=== PATIENT | male | born 1965 | race Caucasian/White ===

== ENCOUNTER 2024-09-01 11:34 | Inpatient (IN) | payer MEDICARE, OTHER ==
[~2024-09-01] VITALS: Ht 177.8 cm; Wt 100.5 kg
[~2024-09-01 11:34] MED LIST: ACET-890 PO; INSU100I12 SQ; LACT1CAP26 PO; NORCO10T PO; NYSTATIN TOP; ONDA4TAB6 PO; OXYC10TA6 PO; POLY17PO10 PO; PREG100C24 PO; SULF1TAB45 PO; VIT C PO; ZINC PO; [UNRECOGNIZED DRUG - CODE] TP
--- NOTE | 2024-09-01 12:25 | RADIOLOGY REPORT ---
CHEST RADIOGRAPH Indication: WOUNDS Technique: Single frontal view of the chest was obtained COMPARISON: None FINDINGS: Lines and Tubes: None Lungs: Clear Pleura: No effusion. No pneumothorax. Cardiomediastinal contours: Unremarkable Bones: Unremarkable IMPRESSION: No acute disease.
[2024-09-01 12:37] LABS: BILIRUBIN,URINE NEGATIVE (Neg); CLARITY,URINE CLEAR (Clear); COLOR,URINE YELLOW (Yellow); GLUCOSE, URINE >=1000 mg/dl (Neg); KETONES,URINE NEGATIVE (Neg); LEUKOCYTE ESTERASE ,URINE SMALL (Neg); NITRITES, URINE POSITIVE (Neg); OCCULT BLOOD,URINE TRACE-INTACT (Neg); PROTEIN,URINE NEGATIVE (Neg); UROBILINOGEN,URINE 0.2 E.U/dL (0.2-1.0)
[2024-09-01 12:49] LABS: UA COLLECTION TYPE FOLEY CATH
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
[2024-09-01 13:05] LABS: RBC,URINE NONE SEEN /HPF (0-2)
[2024-09-01 13:06] LABS: BACTERIA,URINE 1+ /HPF (Neg); MUCUS STRANDS FEW /LPF (Neg); SQUAMOUS EPITHELIAL CELL,UR FEW /LPF (FEW); WBC CLUMPS,URINE FEW /HPF (NEGATIVE)
[2024-09-01] MEDS ORDERED: morphine 2 MG/ML inj. syringe IV PRN (13:20)
[2024-09-01] MEDS ORDERED: acetaminophen 325mg tablet PO PRN ×2 (13:20)
[2024-09-01] MEDS ORDERED: potassium Cl 40MEQ/1/2NS 520ml 520 ML IV PRN (13:20)
[2024-09-01] MEDS ORDERED: HYDROcodone/acetaminophen 10/325mg tab PO PRN (13:20)
[2024-09-01] MEDS ORDERED: potassium Cl 20 mEq SR tablet PO PRN (13:20)
[2024-09-01] MEDS ORDERED: HYDROcodone/acetaminophen 5mg/325mg tablet PO PRN (13:20)
[2024-09-01] MEDS ORDERED: ondansetron/PF 4mg/2ml inj IV PRN (13:20)
[2024-09-01] MEDS ORDERED: mag hydrox/Alum hydrox/simeth 30ml oral suspension PO PRN (13:20)
[2024-09-01] MEDS ORDERED: magnesium hydroxide 30ml (MOM) UD suspension PO PRN (13:20)
[2024-09-01 13:34] LABS: ALBUMIN 1.6 G/DL (3.4-5.0); ANION GAP 6 (8-16); BLOOD UREA NITROGEN 3 MG/DL (7-18); CALCIUM 7.5 MG/DL (8.5-10.1); CHLORIDE 102 MMOL/L (99-107); CREATININE 0.25 MG/DL (0.60-1.10); GLUCOSE 259 MG/DL (70-104); SODIUM 136 MMOL/L (135-145); TOTAL CARBON DIOXIDE 28.5 MMOL/L (24-32); eCRCL 280 ML/MIN; eGFR > 90 ML/MIN
[2024-09-01 13:43] LABS: POTASSIUM 3.7 MMOL/L (3.5-5.1)
[2024-09-01] MEDS: normal saline 1000ml 1,000 ML IV ONE ×2 (13:56)
[2024-09-01 14:04] LABS: BASOPHILS # (AUTO) 0.1 X10'3 (0-0.2); BASOPHILS % (AUTO) 0.8 % (0-1); EOSINOPHILS # (AUTO) 0.5 X10'3 (0-0.9); HEMATOCRIT 29.4 % (42.0-52.0); HEMOGLOBIN 9.1 g/dl (14.0-17.9); LYMPHOCYTES # (AUTO) 1.5 X10'3 (1.1-4.8); LYMPHOCYTES % (AUTO) 21.7 % (21-51); MEAN PLATELET VOLUME 7.2 FL (7.4-10.4); MONOCYTES # (AUTO) 0.6 X10'3 (0-0.9); MONOCYTES % (AUTO) 8.3 % (2-12); NEUTROPHILS # (AUTO) 4.3 X10'3 (1.8-7.7); NEUTROPHILS % (AUTO) 62.2 % (42-75); PLATELET COUNT 336 X10'3 (140-440); RED BLOOD COUNT 3.98 X10'6 (4.70-6.10); RED CELL DISTRIBUTION WIDTH 16.3 % (11.5-14.5); WHITE BLOOD COUNT 6.9 X10'3 (4.5-11.0)
[2024-09-01] MEDS: vancomycin 1,750 MG in NS 350ml IV soln IV ONE (14:15)
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
[2024-09-01 15:43] LABS: FERRITIN 164 NG/ML (26-388)
[2024-09-01] MEDS: morphine 2 MG/ML inj. syringe IV PRN (15:48)
[2024-09-01] MEDS ORDERED: dextrose 50%-water 50ml dispensing syringe IV PRN ×2 (17:15)
[2024-09-01] MEDS ORDERED: DEXTROSE 15 GM of carb/4 tabs (each vial/BOTTLE has 4 tablets) PO PRN ×2 (17:15)
[2024-09-01] MEDS ORDERED: glucagon, human recombinant 1mg kit SUBCUT PRN (17:15)
[2024-09-01 17:40] VITALS: BP 123/64; PULSE 96; RESP 14; TEMP 97; O2SAT 95
[2024-09-01] MEDS: metroNIDAZOLE-Flagyl 500mg/NS 100 ML IV SCH ×2 (17:43→20:15)
[2024-09-01] MEDS: pantoprazole 40 MG vial IV ONE (17:44)
[2024-09-01 17:51] LABS: HEMOGLOBIN A1C > 12.0 % (4.5-6.2)
[2024-09-01 18:00] VITALS: BP 121/87; PULSE 99; RESP 18; TEMP 96.9; O2SAT 99
--- NOTE | 2024-09-01 18:09 | ELECTROCARDIOGRAPH REPORT ---
[facility] Test Date: 2024-09-01 Test Time: 18:07:13 Pat Name: MIKAYLA AGUAYO Department: [facility] 3S Room: [place] [address] A Gender: M [employer] Assistant: : 1965 Requested By: ZOILA SHOEMAKER Order Number: [id number] Reading MD: Dr. LEIF Ruvalcaba Measurements Intervals [place] Rate: 99 P: 77 HI: 186 QRS: -20 QRSD: 125 T: 64 QT: 369 QTc: 474 Interpretive Statements Sinus tachycardia Atrial premature complex Nonspecific intraventricular conduction delay Inferior infarct, old Electronically Signed On 09-02-2024 18:33:[address] LEIF Ruvalcaba Please click the below link to view image of tracing.
[2024-09-01 20:00] VITALS: RESP 18; O2SAT 97
[2024-09-01] MEDS: CEFEPIME 2gm in D5W 50mL 50 ML IV SCH ×2 (20:00→21:52)
[2024-09-01] MEDS: docusate sod 100mg capsule PO SCH (20:00)
[2024-09-01] MEDS: K and/or MAG REPLACEMENT MC SCH (20:00)
[2024-09-01] MEDS ORDERED: INSULIN LISPRO 100 UNIT/ML INSULN.PEN MULTI-DOSE SQ SCH (21:00)
[2024-09-01] MEDS: ringers solution, lacted 1,000 ML IV SCH (21:28)
[2024-09-01] MEDS: heparin, porcine 5000 units/ml vial SQ SCH (21:30)
[2024-09-01] MEDS: INSULIN LISPRO 100 UNIT/ML INSULN.PEN MULTI-DOSE SQ SCH (21:40)
[2024-09-01] MEDS: insulin glargine (Lantus) pen - multi-dose SQ SCH (21:40)
[2024-09-01 22:00] VITALS: BP 100/60; PULSE 94; RESP 16; TEMP 96.9; O2SAT 98
[2024-09-01] MEDS: vancomycin/NS 1 GM ADD-VANTAGE 250 ML IV SCH (22:58)
[2024-09-02] VITALS (8 sets, daily range): BP systolic 127–174; BP diastolic 66–87; PULSE 93–111; RESP 15–21; TEMP 96.9–98.6; O2SAT 93–98
[2024-09-02 04:00] LABS: UA COLLECTION TYPE NON-SPECIFIED
[2024-09-02 04:01] LABS: CLARITY,URINE CLOUDY (Clear); COLOR,URINE RED (Yellow)
[2024-09-02 04:04] LABS: BACTERIA,URINE 1+ /HPF (Neg); RBC,URINE TNTC /HPF (0-2); SQUAMOUS EPITHELIAL CELL,UR NONE SEEN /LPF (FEW); WBC,URINE 20-30 /HPF (0-4)
[2024-09-02 07:09] LABS: BASOPHILS % (AUTO) 0.5 % (0-1); EOSINOPHILS # (AUTO) 0.4 X10'3 (0-0.9); EOSINOPHILS % (AUTO) 6.7 % (0-6); HEMATOCRIT 26.6 % (42.0-52.0); HEMOGLOBIN 8.3 g/dl (14.0-17.9); LYMPHOCYTES # (AUTO) 1.3 X10'3 (1.1-4.8); LYMPHOCYTES % (AUTO) 22.6 % (21-51); MEAN CORPUSCULAR HEMOGLOBIN 23.1 PG (27.0-31.0); MEAN CORPUSCULAR HGB CONC 31.2 g/dL (33.0-36.5); MEAN CORPUSCULAR VOLUME 74.1 FL (78-98); MEAN PLATELET VOLUME 7.5 FL (7.4-10.4); MONOCYTES # (AUTO) 0.5 X10'3 (0-0.9); MONOCYTES % (AUTO) 8.9 % (2-12); NEUTROPHILS # (AUTO) 3.6 X10'3 (1.8-7.7); NEUTROPHILS % (AUTO) 61.3 % (42-75); PLATELET COUNT 312 X10'3 (140-440); RED BLOOD COUNT 3.59 X10'6 (4.70-6.10); RED CELL DISTRIBUTION WIDTH 16.7 % (11.5-14.5); WHITE BLOOD COUNT 5.9 X10'3 (4.5-11.0)
[2024-09-02 07:32] LABS: ALANINE AMINOTRANSFERASE 10 U/L (12-78); ALBUMIN 1.4 G/DL (3.4-5.0); ALBUMIN/GLOBULIN RATIO 0.3 (1.1-1.5); ALKALINE PHOSPHATASE 66 IU/L (46-116); ANION GAP 6 (8-16); ASPARTATE AMINO TRANSFERASE 8 U/L (10-37); BILIRUBIN,TOTAL 0.2 MG/DL (0.1-1.0); BLOOD UREA NITROGEN 6 MG/DL (7-18); BUN/CREATININE RATIO 17.1 (10.0-20.0); CALCIUM 7.3 MG/DL (8.5-10.1); CHLORIDE 102 MMOL/L (99-107); CHOLESTEROL 109 MG/DL (0-200); CREATININE 0.35 MG/DL (0.60-1.10); GLUCOSE 281 MG/DL (70-104); HDL CHOLESTEROL 27 MG/DL (35-60); LDL CHOLESTEROL 69 MG/DL (50-100); MAGNESIUM 1.1 MG/DL (1.5-2.4); POTASSIUM 3.3 MMOL/L (3.5-5.1); SODIUM 134 MMOL/L (135-145); TOTAL CARBON DIOXIDE 25.9 MMOL/L (24-32); TOTAL PROTEIN 5.6 G/DL (6.4-8.2); TRIGLYCERIDES 112 MG/DL (20-135); eCRCL 229 ML/MIN; eGFR > 90 ML/MIN
[2024-09-02] MEDS: potassium Cl 20 mEq SR tablet PO PRN (08:27)
[2024-09-02] MEDS: pantoprazole 40 MG vial IV SCH (08:28)
[2024-09-02] MEDS: magnesium sulf-water 2g/50mL 50 ML IV PRN (08:33)
[2024-09-02] MEDS: magnesium sulf-water 4G/100mL 100 ML IV PRN (11:26)
[2024-09-02 11:27] LABS: URINE AMPHETAMINE SCREEN POSITIVE (Neg); URINE BARBITUATE SCREEN NEGATIVE (Neg); URINE BENZODIAZEPINES SCREEN NEGATIVE (Neg); URINE CANNABINOID SCREEN NEGATIVE (Neg); URINE COCAINE SCREEN NEGATIVE (Neg); URINE METHADONE SCREEN NEGATIVE (Neg); URINE OPIATE SCREEN POSITIVE (Neg); URINE PHENCYCLIDINE SCREEN NEGATIVE (Neg)
[2024-09-02] MEDS: VANCOMYCIN LEVEL IV ONE (13:33)
[2024-09-02 13:50] LABS: VANCOMYCIN,TROUGH 16.8 ug/mL (10.0-20.0)
--- NOTE | 2024-09-02 15:45 | RADIOLOGY REPORT ---
EXAM: CT CT ABDOMEN PELVIS HISTORY: MAGGOTS IN ABDOMENAL CAVITY AND OR SUPRAPUBIC CATHETER AND OR BLADDER COMPARISON: None TECHNIQUE: Helical CT images of the abdomen and pelvis were performed without IV contrast. Sagittal a nd coronal reformatted images were obtained. This CT exam was performed using 1 or more of the follow ing dose reduction techniques: Automated exposure control, adjustment of the mA and/or kv according t o patient size, or the use of iterative reconstruction techniques. Radiation Dose Information: CT Dose: CTDI volume is 32.92 mGy. Dose-length product is 2050.69 mGy*cm FINDINGS/IMPRESSION: 1. Small bilateral pleural effusions with mild bilateral lower lobe infiltrates which may represent a telectasis or pneumonia. 2. Vuer-ze-immhvhsw bilateral hydronephrosis and hydroureter without visualization of obstructing valentina culi. 3. Fecal retention in the colon suggestive of constipation. 4. Postoperative changes of partial sigmoid colectomy, Ana Maria's pouch, left lower quadrant colostom y, suprapubic urinary bladder catheter, L1-L2 discectomy with intervertebral disc prosthesis, T12-L1 laminectomy, left proximal femoral trochanteric nail fixation. 5. Subacute to chronic appearing right proximal femoral intertrochanteric fracture with extensive valentina dillon formation present, without presence of metallic fixation hardware. The fracture line remains vis ualized. 6. Bilateral ischial decubitus ulcers and left hip decubitus ulcer. Gas density extends to the bone i n the S3 decubitus ulcers, which may the associated with osteomyelitis and/or septic arthritis. Addit ionally, there is a less severe decubitus ulcer posterior to the right greater trochanter. 7. No evidence of bowel obstruction, acute appendicitis, or other acute process in the abdomen or pel vis.
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
[2024-09-02] MEDS: JUVEN Smoothie Arginine/Glut./Ca2+Bmb (Juven 19.3pkt) 240ml cup PO SCH (17:56)
[2024-09-02] MEDS ORDERED: mineral oil 133ml enema RC PRN (18:05)
[2024-09-02 18:37] LABS: THYROID STIMULATING HORMONE 2.04 ulU/ml (0.34-4.50)
[2024-09-02] MEDS: polyethylene glycol 3350 17gm powd pack PO SCH (21:07)
[2024-09-02] MEDS: magnesium citrate 296ml oral solution PO ONE (21:21)
[2024-09-03] VITALS (15 sets, daily range): BP systolic 87–238; BP diastolic 50–99; PULSE 90–110; RESP 15–22; TEMP 97.3–98.7; O2SAT 93–98
[2024-09-03] MEDS: hydrALAZINE 20mg/ml inj. IV ONE (03:35)
[2024-09-03] MEDS ORDERED: ketorolac trometh 30MG/ML vial 30 MG/ML VIAL IM ONE (04:05)
[2024-09-03] MEDS: ketorolac trometh 30MG/ML vial 30 MG/ML VIAL IV ONE (04:28)
[2024-09-03 09:45] LABS: BASOPHILS % (AUTO) 0.5 % (0-1); EOSINOPHILS # (AUTO) 0.3 X10'3 (0-0.9); EOSINOPHILS % (AUTO) 4.4 % (0-6); HEMATOCRIT 30.7 % (42.0-52.0); HEMOGLOBIN 9.5 g/dl (14.0-17.9); LYMPHOCYTES # (AUTO) 1.1 X10'3 (1.1-4.8); MEAN CORPUSCULAR HEMOGLOBIN 23.1 PG (27.0-31.0); MEAN CORPUSCULAR VOLUME 74.4 FL (78-98); MEAN PLATELET VOLUME 7.3 FL (7.4-10.4); MONOCYTES # (AUTO) 0.6 X10'3 (0-0.9); MONOCYTES % (AUTO) 8.1 % (2-12); NEUTROPHILS # (AUTO) 5.2 X10'3 (1.8-7.7); PLATELET COUNT 392 X10'3 (140-440); RED BLOOD COUNT 4.13 X10'6 (4.70-6.10); RED CELL DISTRIBUTION WIDTH 16.6 % (11.5-14.5); WHITE BLOOD COUNT 7.2 X10'3 (4.5-11.0)
[2024-09-03 09:56] LABS: ALANINE AMINOTRANSFERASE 15 U/L (12-78); ALBUMIN 1.6 G/DL (3.4-5.0); ALBUMIN/GLOBULIN RATIO 0.3 (1.1-1.5); ALKALINE PHOSPHATASE 85 IU/L (46-116); ANION GAP 3 (8-16); ASPARTATE AMINO TRANSFERASE 10 U/L (10-37); BILIRUBIN,TOTAL 0.2 MG/DL (0.1-1.0); BLOOD UREA NITROGEN 5 MG/DL (7-18); BUN/CREATININE RATIO 12.2 (10.0-20.0); CALCIUM 7.8 MG/DL (8.5-10.1); CHLORIDE 104 MMOL/L (99-107); CREATININE 0.41 MG/DL (0.60-1.10); GLUCOSE 265 MG/DL (70-104); POTASSIUM 3.9 MMOL/L (3.5-5.1); SODIUM 139 MMOL/L (135-145); TOTAL CARBON DIOXIDE 31.7 MMOL/L (24-32); TOTAL PROTEIN 6.3 G/DL (6.4-8.2); eCRCL 195 ML/MIN; eGFR > 90 ML/MIN
[2024-09-03] MEDS: niCARDipine-NS 40mg/200ml IVPB 200 ML IV SCH (14:39)
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
[2024-09-04] VITALS (8 sets, daily range): BP systolic 95–151; BP diastolic 55–77; PULSE 80–109; RESP 12–22; TEMP 97–98.4; O2SAT 90–98
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
[2024-09-04 07:01] LABS: BASOPHILS % (AUTO) 0.6 % (0-1); EOSINOPHILS # (AUTO) 0.6 X10'3 (0-0.9); EOSINOPHILS % (AUTO) 9.6 % (0-6); HEMATOCRIT 25.1 % (42.0-52.0); LYMPHOCYTES # (AUTO) 1.1 X10'3 (1.1-4.8); LYMPHOCYTES % (AUTO) 18.9 % (21-51); MEAN CORPUSCULAR HEMOGLOBIN 23.6 PG (27.0-31.0); MEAN CORPUSCULAR HGB CONC 31.7 g/dL (33.0-36.5); MEAN CORPUSCULAR VOLUME 74.4 FL (78-98); MEAN PLATELET VOLUME 7.2 FL (7.4-10.4); MONOCYTES # (AUTO) 0.4 X10'3 (0-0.9); MONOCYTES % (AUTO) 7.2 % (2-12); NEUTROPHILS # (AUTO) 3.7 X10'3 (1.8-7.7); NEUTROPHILS % (AUTO) 63.7 % (42-75); PLATELET COUNT 321 X10'3 (140-440); RED BLOOD COUNT 3.37 X10'6 (4.70-6.10); RED CELL DISTRIBUTION WIDTH 16.8 % (11.5-14.5); WHITE BLOOD COUNT 5.8 X10'3 (4.5-11.0)
[2024-09-04 07:26] LABS: ALANINE AMINOTRANSFERASE 8 U/L (12-78); ALBUMIN 1.3 G/DL (3.4-5.0); ALBUMIN/GLOBULIN RATIO 0.3 (1.1-1.5); ALKALINE PHOSPHATASE 69 IU/L (46-116); ANION GAP 4 (8-16); ASPARTATE AMINO TRANSFERASE 11 U/L (10-37); BILIRUBIN,TOTAL 0.2 MG/DL (0.1-1.0); BLOOD UREA NITROGEN 7 MG/DL (7-18); BUN/CREATININE RATIO 18.4 (10.0-20.0); CALCIUM 7.8 MG/DL (8.5-10.1); CHLORIDE 104 MMOL/L (99-107); CREATININE 0.38 MG/DL (0.60-1.10); GLUCOSE 260 MG/DL (70-104); MAGNESIUM 1.6 MG/DL (1.5-2.4); POTASSIUM 3.4 MMOL/L (3.5-5.1); SODIUM 137 MMOL/L (135-145); TOTAL CARBON DIOXIDE 29.3 MMOL/L (24-32); TOTAL PROTEIN 5.6 G/DL (6.4-8.2); eCRCL 211 ML/MIN; eGFR > 90 ML/MIN
[2024-09-04] MEDS: multivitamins, therapeutics tablet PO SCH (11:53)
[2024-09-04] MEDS: ascorbic acid 500mg tablet PO SCH (11:53)
[2024-09-04] MEDS: zinc sulfate 220mg capsule PO SCH (11:53)
[2024-09-04] MEDS: potassium Cl 20 mEq SR tablet PO STA (17:14)
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
== END 2024-09-04 17:28 | DRG 871 ==
LOC: ER 11:37 → UNDOADMIN 13:25 → ED HOLD 13:25 → PCU 3S 17:40 → ED HOLD 17:40
PROVIDERS: ADMIT Nurse Practitioner Family; ATTEND Nurse Practitioner Family
DX: A41.9 Sepsis, unspecified organism (principal); G82.50 Quadriplegia, unspecified; L89.324 Pressure ulcer of left buttock, stage 4; L89.314 Pressure ulcer of right buttock, stage 4; T83.518A Infection and inflammatory reaction due to other urinary catheter, initial encounter; N39.0 Urinary tract infection, site not specified; L03.312 Cellulitis of back [any part except buttock and flank]; Z59.02 Unsheltered homelessness; I16.1 Hypertensive emergency; Z66 Do not resuscitate; S31.000A Unspecified open wound of lower back and pelvis without penetration into retroperitoneum, initial encounter; F15.129 Other stimulant abuse with intoxication, unspecified; Y83.8 Other surgical procedures as the cause of abnormal reaction of the patient, or of later complication, without mention of misadventure at the time of the procedure; D50.8 Other iron deficiency anemias; X58.XXXA Exposure to other specified factors, initial encounter; Y93.89 Activity, other specified; Y99.8 Other external cause status; Z88.1 Allergy status to other antibiotic agents; Y92.89 Other specified places as the place of occurrence of the external cause; Z91.09 Other allergy status, other than to drugs and biological substances; Z74.01 Bed confinement status; Z93.3 Colostomy status
CPT/HCPCS: 36415; 71045; 74176; 80048; 80053; 80061; 80202; 80305; 81001; 82728; 82948; 83036; 83605; 83735; 84145; 84443; 85025; 87040; 87077; 87081; 87088; 87186; 93005; 99285; A4314; A4340; A4421; A6196; A6209; A6212; A6213; A6250; A6253; A6258; A6260; A6446; A6449; G0378; J0692; J1644; J1815; J1885; J2270; J2470; J3370; J3475; J3490; J7030; J7040; J7120